=== PATIENT | male | born 1990 | race Caucasian/White ===

== ENCOUNTER 2022-08-24 09:30 | Inpatient (IN) | payer SELFPAY ==
[~2022-08-24] VITALS: Ht 182.9 cm; Wt 79.4 kg
[2022-08-24] MEDS ORDERED: diphenhydrAMINE 50 MG/1 ML VIAL ONE ×2 (09:38→23:26)
[2022-08-24] MEDS ORDERED: HALOPERIDOL LACTATE 5 MG/1 ML VIAL ONE ×2 (09:38→23:25)
[2022-08-24] MEDS ORDERED: HALOPERIDOL LACTATE 5 MG/1 ML VIAL IM ONE ×2 (09:45→23:15)
[2022-08-24] MEDS ORDERED: diphenhydrAMINE 50 MG/1 ML VIAL IM ONE ×2 (09:45→23:15)
--- NOTE | 2022-08-24 09:49 | NUR ---
patient bib ems for AMS, was seen running in traffic on [email or web address]. came in custody and was triaged in room. once patient was calm enough, police left. pt recieved Haldol and rajinderl IM for aggitation. pt is now calm and resting in bed, monitor is on.
[2022-08-24 10:01] LABS: CARBON DIOXIDE 29 mmol/L (21-32); CHLORIDE 105 mmol/L (98-107); CREATININE 1.4 mg/dL (0.6-1.3); GLUCOSE 93 mg/dL (74-106); POTASSIUM 3.6 mmol/L (3.5-5.1); UREA NITROGEN, BLOOD 24 mg/dL (7-18)
[2022-08-24 10:06] LABS: ALANINE AMINOTRANSFERASE 56 U/L (16-63); ALKALINE PHOSPHATASE 107 U/L (50-136); ASPARTATE AMINOTRANSFERASE 73 U/L (15-37); BILIRUBIN,DIRECT 0.3 mg/dL (0.0-0.2); BILIRUBIN,TOTAL 1.7 mg/dL (0.2-1.0); TOTAL PROTEIN, SERUM 8.7 g/dL (6.4-8.2)
[2022-08-24 10:10] LABS: ETHANOL < 3 MG/DL (0-0)
[2022-08-24 10:26] LABS: ACETAMINOPHEN < 10.0 ug/mL (10-30)
[2022-08-24 10:32] LABS: HEMATOCRIT 36.5 % (36.7-47.1); MEAN CORPUSCULAR HEMOGLOBIN 27.4 uug (23.8-33.4); MEAN CORPUSCULAR VOLUME 83.7 fL (73.0-96.2); PLATELET COUNT (AUTO) 316 K/uL (152-348)
[2022-08-24 11:20] LABS: *BILIRUBIN,URIN NEGATIVE (NEGATIVE); *CLARITY,URINE CLEAR (CLEAR); *COLOR,URINE YELLOW (YELLOW); *KETONES,URINE 2+ (NEGATIVE); *UROBILINOGEN,URINE 0.2 E.U./dl (NORMAL); LEUKOCYTE ESTERASE ,URINE NEGATIVE (NEGATIVE); NITRITE, URINE NEGATIVE (NEGATIVE); PH,URINE 5.5 (5.0-8.0); UGLUCOSE NEGATIVE (NEGATIVE)
[2022-08-24 11:28] LABS: *BLOOD, URINE TRACE (NEGATIVE)
[2022-08-24 11:34] LABS: *AMPHETAMINE, URINE POSITIVE (NEGATIVE); *CANNABINOID, URINE POSITIVE (NEGATIVE); *COCCAINE, URINE NEGATIVE (NEGATIVE); *OPIATE, URINE NEGATIVE (NEGATIVE); *PHENCYCLIDINE SCREEN,URINE NEGATIVE (NEGATIVE)
[2022-08-24 11:54] LABS: RBC,URINE 0-3 /HPF (0-3)
[2022-08-24 11:55] LABS: BACTERIA,URINE NONE SEEN /HPF (NONE SEEN); SQUAMOUS EPITHELIAL CELL,UR NONE SEEN /HPF (NONE SEEN); WBC,URINE NONE SEEN /HPF (0-3)
--- NOTE | 2022-08-24 13:01 | NUR ---
Pt sleeping. Released wrist restraints from pt.
--- NOTE | 2022-08-24 13:33 | NUR ---
Pt sleeping, released the 2 ankle restraints.
--- NOTE | 2022-08-24 15:10 | NUR ---
Pt suddenly sat up, started yelling, and acting out (also making striking type gestures). MD ordered that pt be placed back in restraints. Reapplied them x 4 limbs. pt fell back asleep.
[2022-08-24] MEDS ORDERED: OLANZAPINE 5 MG TABLET PO ONE (16:15)
[2022-08-24] MEDS ORDERED: OLANZAPINE 10 MG VIAL IM ONE ×2 (17:30→17:31)
--- NOTE | 2022-08-24 18:00 | NUR ---
gave pt 2 juices and water to drink.
--- NOTE | 2022-08-24 19:20 | NUR ---
First contact at this time. REceived report from TAMMY [facility] of [facility]. Pt presently in 4 point restraints, resp even and unlabored. NO acute distress noted; however, pt appears to continue to get up out of restraints and is cursing and yelling at student nurse and yours truly. Pt refuses to fully participate in assessment.
[2022-08-24] MEDS ORDERED: KETAMINE HCL 500 MG/10 ML INJ IM ONE ×2 (19:45→22:00)
[2022-08-24] MEDS ORDERED: KETAMINE HCL 500 MG/10 ML INJ ONE ×2 (20:00→21:33)
--- NOTE | 2022-08-24 21:57 | NUR ---
Followed up with Intake [facility] of [facility]. Spoke with lady name Isabelle. Notified me that she received medical clearance fax and another coordinator will f/u with us.
[2022-08-24] MEDS ORDERED: LORAZEPAM 2 MG/1 ML VIAL IM ONE (23:15)
[2022-08-24] MEDS ORDERED: LORAZEPAM 2 MG/1 ML VIAL ONE (23:25)
--- NOTE | 2022-08-25 07:22 | NUR ---
pATIENT IS SLEEPING. AROUSES WITH TOUCH. ON CONTINUOUS MONITOR. VSS
--- NOTE | 2022-08-25 09:24 | NUR ---
patient still asleep, arouses to touch. vital signs stable.
[2022-08-25] MEDS ORDERED: IV NORMAL SALINE 500 ML BAG IV ONE (11:00)
[2022-08-25] MEDS ORDERED: HALOPERIDOL LACTATE 5 MG/1 ML VIAL ONE ×2 (11:07→15:16)
[2022-08-25] MEDS ORDERED: HALOPERIDOL LACTATE 5 MG/1 ML VIAL IM ONE (11:45)
--- NOTE | 2022-08-25 11:47 | NUR ---
PATIENT WOKE UP, AMBULATED TO BATHROOM, VOIDED 650 CC OF URINE THEN WENT BACK TO BED. HE IS MUMBLING, HARD TO UNDERSTAND. HE TOOK OFF HIS GOWN AND THREW IT. I CONVINCED HIM TO GO BACK TO BED AND GAVE HALDOL PER MD ORDER. HE ATE LUNCH AND DRANK JUICE.
--- NOTE | 2022-08-25 14:01 | NUR ---
Psychiatrist Dr Segovia here at bedside speaking (trying) to patient
--- NOTE | 2022-08-25 14:49 | NUR ---
SOPHIA called Dmitri at [facility] ([phone]) and faxed over the patient's clinical information (fax: [phone]). SOPHIA called Kristin at [facility] ([phone]) and faxed over the patient's clinical information (fax: [phone]). SOPHIA called Felicia at [facility] ([phone]) and faxed over the patient's clinical information (fax: [phone]).
--- NOTE | 2022-08-25 15:20 | NUR ---
Patient sitting up talking nonsense, unable to understand him except when he said "I want food". I gave him a food tray and water. Awaiting for nurse report to take patient upstairs to inpatient
[2022-08-25] MEDS ORDERED: HALOPERIDOL LACTATE 5 MG/1 ML VIAL IV ONE (15:30)
--- NOTE | 2022-08-25 15:59 | NUR ---
Hand off report given to Yenny MUNOZ
[2022-08-25] MEDS ORDERED: IV 1/2NS 1000 ML 1,000 ML IV PRN (16:00)
[2022-08-25] MEDS ORDERED: HALOPERIDOL LACTATE 5 MG/1 ML VIAL IM PRN (16:00)
[2022-08-25] MEDS ORDERED: ACETAMINOPHEN 325 MG TABLET PO PRN (16:00)
[2022-08-25] MEDS ORDERED: ONDANSETRON 4 MG/2 ML VIAL IV PRN (16:00)
[2022-08-25] MEDS ORDERED: MAGNESIUM HYDROXIDE 30 ML LIQUID UDC PO PRN (16:00)
--- NOTE | 2022-08-25 16:08 | NUR ---
SOPHIA contacted Dhruv from [facility] ([phone]) and faxed the patient's facesheet (fax: [phone]).
[2022-08-25 16:50] VITALS: BP 136/67
[2022-08-25 17:16] LABS: POTASSIUM 3.5 mmol/L (3.5-5.1)
[2022-08-25 17:31] LABS: MAGNESIUM 2.3 mg/dL (1.8-2.4)
--- NOTE | 2022-08-25 18:00 | NUR ---
Patient received from ER, reporting nurse Mariah. Patient has been sleeping since he got on the floor from ER. I woke him up for Covid test, he woke up for about 30 seconds, said something unclear and fell back asleep.
[2022-08-25] MEDS ORDERED: IV LACTATED RINGERS SOLUTION 1,000 ML IV PRN (20:00)
--- NOTE | 2022-08-25 20:00 | NUR ---
Received patient awakle, alert and oriented times two to three lying in bed. Pt doesn't want to be bothered. Observed to be well sedated but arousable with stimuli. Vital signs taken and recorded-all parameters were within normal limits. Bedside care done. Physical assessment done and completed. Due meds given and taken. Not in any acute distress or pain. Will continue to monitor. 0030 Resting with eyes closed. Siderails up times two. Call light in reach. Will continue to monitor 0630 The patient woke and decided to sign AMA. Refused lab works and vital signs. Called MD regarding patient's wanting to sign AMA- MD agreed. Heplock discontinued. Patient signed AMA. Left the floor in stable condition..
[2022-08-25] MEDS ORDERED: BLOOD SUGAR DIAGNOSTIC 1 EACH STRIP VI ONE (20:15)
[2022-08-25 20:40] VITALS: BP 129/64
[2022-08-26 04:42] VITALS: BP 118/71
[2022-08-26] MEDS ORDERED: PANTOPRAZOLE SODIUM 40 MG TABLET.DR PO SCH (07:00)
== END 2022-08-26 06:30 | disposition left against medical advice (07) | DRG 917 ==
LOC: ER 09:30 → MEDSURG3 08-25 15:16
PROVIDERS: ADMIT Nurse Practitioner Family; ATTEND Nurse Practitioner Family
DX: T43.621A Poisoning by amphetamines, accidental (unintentional), initial encounter (principal); G92.8 Other toxic encephalopathy; N17.0 Acute kidney failure with tubular necrosis; F05 Delirium due to known physiological condition; F19.159 Other psychoactive substance abuse with psychoactive substance-induced psychotic disorder, unspecified; Z20.822 Contact with and (suspected) exposure to COVID-19; Z59.00 Homelessness unspecified; T40.721A Poisoning by synthetic cannabinoids, accidental (unintentional), initial encounter; Y92.89 Other specified places as the place of occurrence of the external cause
CPT/HCPCS: 36415; 70450; 71045; 83735; 85025; A4663; C1758; G0378; G0480; J1200; J1630; J2060; J2358; J3490; J7040